=== PATIENT | male | born 1965 | race Caucasian/White ===

== ENCOUNTER 2023-01-25 18:26 | Emergency (ER) | payer OTHER, BC ==
[~2023-01-25 18:26] MED LIST: Iopamidol 370 76% 125 ML VIAL FS ONE
[2023-01-25] MEDS ORDERED: Sodium Chloride 0.9% 1,000 ML ONE ×2 (18:44→20:37)
[2023-01-25 18:51] LABS: #Basophils 0.1 thou/uL (0.0-0.2); #Lymphocytes 0.7 thou/uL (1.20-3.40); #Monocytes 0.5 thou/uL (0.11-0.59); #Neutrophils 10.6 thou/uL (1.40-6.50); %Basophils 0.8 % (0.0-1.0); %Eosinophils 0.4 % (0.0-10.0); %Lymphocytes 5.7 % (21.0-51.0); %Neutrophils 89.1 % (42.0-75.0); Hemoglobin 14.3 g/dL (14.0-18.0); Mean Corpuscular HGB CONC 34.8 g/dL (32.0-36.0); Mean Corpuscular Hemoglobin 30.7 pg (27.0-31.0); Mean Platelet Volume 7.3 fL (7.4-10.4); Platelet Count 182 10x3/uL (130-400); RBC Distribution Width 11.3 % (11.5-14.5); Red Blood Cell (RBC) Count 4.66 mill/uL (4.70-6.10); White Blood Cell (WBC) Count 11.9 10x3/uL (4.8-10.8)
[2023-01-25 19:09] LABS: ALT (SGPT) 21 U/L (8-55); AST (SGOT) 16 U/L (5-34); Albumin 4.4 g/dL (3.5-5.0); Alkaline Phosphatase 73 U/L (40-110); Anion Gap 17 mmol/L (10-20); BUN (Urea Nitrogen) 24 mg/dL (8.4-25.7); Base Excess-Venous -0.9 mmol/L (-2.0 to 3.0); Bicarbonate (HCO3v) 25.7 mmol/L (22.0-28.0); Bilirubin, Total 0.3 mg/dL (0.2-1.2); CO2 Tension (PvCO2) 48.9 mmHg (42.0-51.0); Calc. Creatinine Clearance 0 mL/min (70-130); Calcium 9.6 mg/dL (7.8-10.44); Calcium, Ionized 1.18 mmol/L (1.15-1.33); Carbon Dioxide 23 mmol/L (22-29); Chloride 105 mmol/L (98-107); Chloride 106 mmol/L (98-107); Estimated GFR 53; Globulin 2.7 g/dL (2.4-3.5); Glucose 80 mg/dL (70-105); Hemoglobin - Calc 14.5 g/dL (14.0-18.0); Magnesium 1.6 mg/dL (1.6-2.6); Potassium 3.5 mmol/L (3.5-5.1); Protein, Total 7.1 g/dL (6.0-8.3); Sodium 142 mmol/L (136-145); Sodium 144 mmol/L (138-145); T. Carbon Dioxide 27.2 mmol/L (22.0-28.0); vO2 Saturation-calc 86.8 % (60.0-85.0)
[2023-01-25 19:10] LABS: Acetaminophen Less than 10.0 mcg/mL (10.0-30.0); Alcohol Less than 10 mg/dL (Less than 10); CK (CPK) 156 U/L (30-200); Salicylate Less than 8.0 mg/dL (15.0-30.0)
[2023-01-25] MEDS ORDERED: Acetaminophen 500 MG TAB ONE (19:19)
[2023-01-25 19:26] LABS: CKMB 1.3 ng/mL (0-6.6)
[2023-01-25] MEDS ORDERED: Aspirin 325 MG TAB ONE (19:43)
[2023-01-25] MEDS ORDERED: Cefepime 2 GM VIAL ONE (20:37)
[2023-01-25] MEDS ORDERED: Ipratropium/Albuterol 3 ML NEB ONE (20:37)
[2023-01-25] MEDS ORDERED: methylPREDNISolone Sod Succ/PF 125 MG/2 ML VIAL ONE (20:37)
[2023-01-25] MEDS ORDERED: Sodium Chloride 0.9% 100 ML ONE (20:37)
[2023-01-25] MEDS ORDERED: Ketorolac Tromethamine 30 MG/ML VIAL ONE (20:41)
[2023-01-25] MEDS ORDERED: Vancomycin 1 GM VIAL ONE (20:52)
[2023-01-25 20:59] LABS: Bilirubin Negative (Negative); Blood, Urine Negative (Negative); Clarity Clear (Clear); Glucose, Urine (Dipstick) Negative (Negative); Ketone, Urine Trace mg/dL (Negative); Leukocyte Negative (Negative); Nitrite Negative (Negative); Protein, Urine (Dipstick) Negative (Neg-Trace); Urobilinogen 0.2 mg/dL (Less than 2); pH, Urine 5.5 (5.0-9.0)
[2023-01-25 21:01] LABS: Specific Gravity, Urine 1.025 (1.002-1.036)
[2023-01-25 21:07] LABS: Amphetamine Not Detected (NotDetected); Barbiturates Screen Not Detected (NotDetected); Benzodiazepine Screen Not Detected (NotDetected); Cocaine Metabolite Screen Not Detected (NotDetected); Methadone Not Detected (NotDetected); Methamphetamine Not Detected (NotDetected); Opiate Screen Not Detected (NotDetected); Oxycodone Screen Not Detected (NotDetected); Phencyclidine (PCP) Not Detected (NotDetected); THC/Cannabinoid Screen Detected (NotDetected); Tricyclic Screen Not Detected (NotDetected)
[2023-01-25 21:08] LABS: Medtox Control Line Valid? VALID (VALID)
[2023-01-25 21:48] LABS: SARS-CoV-2 NAA Rapid Test Not Detected (NotDetected)
[2023-01-25 21:50] LABS: Lactic Acid 0.7 mmol/L (0.5-2.2)
[2023-01-25 22:01] LABS: Troponin I 0.035 ng/mL (< 0.028)
== END 2023-01-26 00:03 | disposition short-term general hospital (02) ==
LOC: MADERS 18:26
DX: J18.9 Pneumonia, unspecified organism (principal); R77.8 Other specified abnormalities of plasma proteins; A41.9 Sepsis, unspecified organism; D72.829 Elevated white blood cell count, unspecified; I10 Essential (primary) hypertension; F17.220 Nicotine dependence, chewing tobacco, uncomplicated; X08.8XXA Exposure to other specified smoke, fire and flames, initial encounter; Z20.822 Contact with and (suspected) exposure to COVID-19
CPT/HCPCS: 71045; 71275; 80053; 80306; 80307; 81003; 82330; 82435; 82550; 82553; 82803; 83605; 83735; 83880; 84132; 84295; 84484; 85025; 87040; 87086; 93005; 96365; 96375; J0692; J1885; J2930; J3370; J3490; J7050; J7620; Q9967